=== PATIENT | male | born 1965 | race Caucasian/White ===

== ENCOUNTER 2017-04-18 08:16 | Emergency (ER) | payer BC ==
[2017-04-18 08:26] VITALS: PULSE 76; BMI 30.1
[2017-04-18] MEDS ORDERED: KETOROLAC TROMETHAMINE 60 MG/2 ML VIAL IM ONE (09:20)
[2017-04-18] MEDS ORDERED: traMADol HCL 50 MG TABLET PO ONE (09:21)
[2017-04-18] MEDS ORDERED: traMADol HCL 50 MG TABLET ONE (09:29)
[2017-04-18] MEDS ORDERED: KETOROLAC TROMETHAMINE 60 MG/2 ML VIAL ONE (09:30)
--- NOTE | 2017-04-18 09:39 | PDOC ---
History of Present Illness - General Chief Complaint: Back Pain Stated Complaint: FALL/ LOWER BACK PAIN Time Seen by Provider: 04/18/17 08:56 History Source: Patient - History of Present Illness Occurred: reports: other Severity: reports: severe Pain Location: reports: back Method of Injury: Yes: fall Past History - Past Medical History Allergies/Adverse Reactions: Allergies Allergy/AdvReac Type Severity Reaction Status Date / Time No Known Allergies Allergy Verified 04/18/17 08:26 Home Medications: Ambulatory Orders Cyclobenzaprine HCl [Flexeril -] 10 mg PO TID 04/18/17 Naproxen [Naprosyn -] 500 mg PO DAILY 04/18/17 Rabeprazole Sodium 20 mg PO DAILY #30 tab 04/18/17 Tramadol HCl 50 mg PO Q6H #20 tablet MDD 200mg 04/18/17 GI Disorders: Yes (ACID REFLUX) - Suicide/Smoking/Psychosocial Hx Smoking History: Never smoked Hx Alcohol Use: No Drug/Substance Use Hx: No Substance Use Type: None Review of Systems - Review of Systems ABD/GI: No: Nausea, Vomiting : No: Dysuria, Flank Pain, Hematuria Musculoskeletal: Yes: Back Pain Neurological: No: Numbness, Tingling, Weakness *Physical Exam - Vital Signs Last Vital Signs Temp Pulse Resp BP Pulse Ox 97.8 F 76 20 135/86 98 04/18/17 08:21 04/18/17 08:21 04/18/17 08:21 04/18/17 08:21 04/18/17 08:21 - Physical Exam General Appearance: Yes: Appropriately Dressed. No: Apparent Distress HEENT: positive: Normal Voice Neck: positive: Supple Respiratory/Chest: negative: Respiratory Distress Gastrointestinal/Abdominal: positive: Soft. negative: Tender Musculoskeletal: positive: Vertebral Tenderness (to L mid back, no obvious contusion) Integumentary: positive: Dry, Warm Neurologic: positive: Fully Oriented, Alert, Normal Mood/Affect ED Treatment Course - RADIOLOGY Radiology Studies Ordered: Category Date Time Status RIBS BILATERAL [RAD] Stat Radiology 04/18/17 09:21 Ordered SPINE-LUMBAR SACRAL [RAD] Stat Radiology 04/18/17 09:21 Ordered Medical Decision Making - Medical Decision Making 04/18/17 09:40 51-year-old male denies any past medical history here with back pain. Patient states approximately 4 days ago while hiking in the [place], he slipped and fell on buttocks and slipped down jagged terrain for approximately 20 feet. He located to left mid back and does not radiate. No lower extremity weakness, saddle anesthesia or bowel or bladder incontinence. Patient states he went to an urgent care center earlier this week and given prescription for naproxen and Flexeril, but states medications do not help and pain persists. Was told by his PMD to come to ED for x-rays See exam Back pain s/p fall Possibly contusion, r/o rib fx -XRs -pain control 04/18/17 11:03 Xrays read as neg for fx. Pt better w/ meds. Will dc w/ pain control and PMD f/ u. Pt requesting refill on aciphex *DC/Admit/Observation/Transfer Diagnosis at time of Disposition: Back sprain - Discharge Dispostion Disposition: HOME Condition at time of disposition: Improved - Prescriptions Prescriptions: Rabeprazole Sodium 20 mg PO DAILY #30 tab Tramadol HCl 50 mg PO Q6H #20 tablet MDD 200mg - Referrals Referrals: Meet Nieves MD [Primary Care Provider] - - Patient Instructions Printed Discharge Instructions: DI for Back Strain or Sprain Additional Instructions: Your xrays did not show any fractures Take medications as directed Please follow up with your PMD
[2017-04-18 11:23] VITALS: BP 128/58; TEMP 98.2
== END 2017-04-18 11:24 | disposition home or self-care (01) ==
LOC: JER 08:16
PROC: 3E0233Z Introduction of Anti-inflammatory into Muscle, Percutaneous Approach (ICD-10-PCS; principal; 2017-04-18)
DX: S39.012A Strain of muscle, fascia and tendon of lower back, initial encounter (principal); W17.89XA Other fall from one level to another, initial encounter; Y93.01 Activity, walking, marching and hiking; Y92.828 Other wilderness area as the place of occurrence of the external cause; Y99.8 Other external cause status
CPT/HCPCS: 71111-TC; 72100-TC; 99283-25